=== PATIENT | female | born 1955 | race Caucasian/White ===

== ENCOUNTER 2021-08-11 16:39 | Emergency (ER) | payer OTHER ==
[2021-08-11] MEDS ORDERED: HYDROCODONE/APAP 7.5/325 MG TAB ONE (17:23)
[2021-08-11] MEDS ORDERED: MORPHINE 4 MG/ML SYR ONE ×2 (18:25→19:59)
[2021-08-11] MEDS ORDERED: ONDANSETRON 4 MG/2 ML VIAL ONE (18:25)
--- NOTE | 2021-08-11 18:36 | RAD REPORT ---
EXAM DESCRIPTION: RAD - Ankle Right 3 View - 08/11/2021 6:19 pm CLINICAL HISTORY: PAIN COMPARISON: No comparisons FINDINGS: No fracture, dislocation or periosteal reaction. No joint effusion seen. No joint space na rrowing. Anterior and lateral soft tissue swelling present. IMPRESSION: Negative right ankle for acute bone or joint finding.
--- NOTE | 2021-08-11 18:39 | RAD REPORT ---
EXAM DESCRIPTION: RAD - Ankle Left 3 View - 08/11/2021 6:19 pm CLINICAL HISTORY: PAIN COMPARISON: No comparisons FINDINGS: Oblique fracture is present through the distal fibula with no significant distraction or a ngulation deformity. There is significant anterior and lateral soft tissue swelling. Coronal oriented fracture line is seen through the posterior tibia extending to the articular surface. Fracture also appears to traverse the medial malleolus. No significant distraction or angulation of any of the frac ture lines. Talus and calcaneus are intact. No foreign body in the soft tissues. IMPRESSION: Distal fibula and posterior malleolus tibia fractures without distraction or angulation of any significance. Suspected medial malleolus fracture without distraction or angulation deformity.
--- NOTE | 2021-08-11 18:40 | RAD REPORT ---
EXAM DESCRIPTION: RAD - Tib Fib Left - 08/11/2021 6:19 pm CLINICAL HISTORY: Fall, leg pain COMPARISON: None. FINDINGS: Distal tibia and fibula fractures are detailed in the ankle report. Remainder the tibia an d fibula are intact. No acute finding in the knee joint. No foreign body or other soft tissue abnormality. IMPRESSION: Distal tibia and fibula fracture is separately reported. Remainder of the tib-fib exam is unremarkable.
--- NOTE | 2021-08-11 19:51 | EDPHYS ---
Physician Documentation [facility] Name: Tati Thomas Age: 65 yrs Sex: Female : 1955 Arrival Date: 08/11/2021 Time: 16:43 Bed 14 Private MD: ED Physician Fer Beal HPI: 08/11 17:25 This 65 yrs old Female presents to ER via Wheelchair with complaints of Fall Injury. cp 17:25 The patient presents with an injury, pain, that is acute. The complaints affect the cp left ankle, right ankle. Details of fall: The patient fell from a height, down approximately 3 stairs, from an upright position, while walking. 17:25 Onset: The symptoms/episode began/occurred just prior to arrival. Patient reports she cp lost her balance causing her to fall down 3 stairs injuring both ankles. Historical: - Allergies: 16:56 No Known Allergies; ld1 - Home Meds: 16:56 trazodone 50 mg Oral tab 1 tab once daily [Active]; Paxil 10 mg Oral tab 1 tab once ld1 daily [Active]; - PMHx: 16:56 Depressive disorder; insomnia; ld1 - PSHx: 16:56 None; ld1 - Immunization history:: Adult Immunizations up to date, Client reports having NOT received the Covid vaccine. - Social history:: Smoking status: Patient denies any tobacco usage or history of. Patient/guardian denies using alcohol. ROS: 17:30 Neck: Negative for pain with movement, pain at rest, stiffness. cp 17:30 Cardiovascular: Negative for chest pain. 17:30 Abdomen/GI: Negative for abdominal pain. 17:30 Back: Negative for pain at rest, pain with movement. 17:30 MS/extremity: Positive for injury or acute deformity, decreased range of motion, pain, tenderness, of the left ankle and right ankle. 17:30 Neuro: Negative for altered mental status, headache, loss of consciousness, syncope, weakness. Exam: 17:35 Constitutional: The patient appears in no acute distress, alert, awake, well developed, cp well nourished, uncomfortable. 17:35 Head/Face: Normocephalic, atraumatic. cp 17:35 Neck: C-spine: vertebral tenderness, is not appreciated, crepitus, is not appreciated, ROM/movement: is normal, is supple, without pain, no range of motions limitations. 17:35 Chest/axilla: Inspection: normal. 17:35 Cardiovascular: Rate: normal, Rhythm: regular. 17:35 Respiratory: the patient does not display signs of respiratory distress, Respirations: normal, no use of accessory muscles, no retractions, labored breathing, is not present, Breath sounds: are clear throughout, no decreased breath sounds. 17:35 Abdomen/GI: Exam negative for discomfort, distension, guarding, Inspection: abdomen appears normal. 17:35 Back: pain, is absent, ROM is normal, vertebral tenderness, is not appreciated. 17:35 Musculoskeletal/extremity: Extremities: grossly normal except: noted in the left ankle: decreased ROM, deformity, pain, swelling, tenderness, noted in the right ankle: pain, tenderness, Pulses: noted to be 2+ in the right dorsalis pedis artery and left dorsalis pedis artery, the left ankle Severe pain noted. Achilles tendons palpated and intact. 17:35 Neuro: Orientation: to person, place \T\ time. Mentation: is normal, Motor: moves all fours, strength is normal, Sensation: no obvious gross deficits. Vital Signs: 16:55 BP 164 / 69; Pulse 88; Resp 18; Temp 98.1(TE); Pulse Ox 97% on R/A; Weight 66.22 kg; ld1 Height 5 ft. 5 in. (165.10 cm); Pain 10/10; 18:11 BP 159 / 77; Pulse 82; Resp 18; Pulse Ox 98% on R/A; Pain 9/10; ld1 19:21 BP 152 / 79; Pulse 79; Resp 18; Pulse Ox 98% on R/A; ld1 16:55 Body Mass Index 24.30 (66.22 kg, 165.10 cm) ld1 Procedures: 20:10 Splinting: Splint applied to left ankle using Orthoglass splint, posterior long leg and cp shahid. applied by myself. tech. Examined by me, post splint application: neurovascular intact, Patient tolerated well. MDM: 17:01 Patient medically screened. 19:40 Physician consultation: Andrez Patton MD was called at 19:40, was contacted at 19:40, regarding consult, patient's condition, and will see patient in office, wants patient to contact clinic in morning to schedule appt. 19:50 Data reviewed: vital signs, nurses notes, radiologic studies, plain films. cp 19:50 Differential diagnosis: fracture, sprain, dislocation, open fracture. Test cp interpretation: by ED physician or midlevel provider: plain radiologic studies. Counseling: I had a detailed discussion with the patient and/or guardian regarding: the historical points, exam findings, and any diagnostic results supporting the discharge/admit diagnosis, radiology results, the need for outpatient follow up, for definitive care, a orthopedic surgeon, to return to the emergency department if symptoms worsen or persist or if there are any questions or concerns that arise at home. Response to treatment: the patient's symptoms have markedly improved after treatment. 08/11 17:18 Order name: XRAY Ankle LEFT 3 view; Complete Time: 18:43 cp 08/11 18:44 Interpretation: Report reviewed. cp 08/11 17:18 Order name: XRAY Ankle RIGHT 3 view; Complete Time: 18:43 cp 08/11 18:44 Interpretation: Report reviewed. cp 08/11 17:18 Order name: XRAY Tib Fib LEFT; Complete Time: 18:43 cp 08/11 18:29 Order name: Saline Lock; Complete Time: 18:29 mh5 08/11 18:35 Order name: Splint - Long Leg: Posterior w/ Stirrup: left ankle; Complete Time: 19:15 cp 08/11 18:35 Order name: Crutches; Complete Time: 19:15 cp 08/11 18:45 Order name: Ankle Splint: Aircast; Complete Time: 19:15 cp Administered Medications: 17:24 Drug: Hydrocodone-Acetaminophen (7.5 mg-325 mg) 1 tabs Route: PO; ld1 20:03 Drug: morphine 4 mg Route: IVP; Site: left antecubital; ld1 20:03 Follow up: Response: No adverse reaction ld1 Disposition: 20:15 Chart complete. cp Disposition Summary: 08/11/21 19:51 Discharge Ordered Location: Home cp Problem: new cp Symptoms: have improved cp Condition: Stable cp Diagnosis - Displaced trimalleolar fracture of left lower leg, initial encounter for closed cp fracture - Sprain of ankle - right cp Followup: cp - With: Andrez Patton MD - When: 1 - 2 days - Reason: left trimalleolar fracture Discharge Instructions: - Discharge Summary Sheet cp - Ankle Sprain cp - Displaced Trimalleolar Ankle Fracture Treated With ORIF cp Forms: - Medication Reconciliation Form cp - Thank You Letter cp - Antibiotic Education cp - Prescription Opioid Use cp Prescriptions: - Ibuprofen 800 mg Oral Tablet - take 1 tablet by ORAL route every 8 hours As needed take with food; 30 tablet; cp Refills: 0, Product Selection Permitted - Tylenol-Codeine #3 300 mg-30 mg Oral - take 2 tablet by ORAL route every 6-8 hours; 20 tablet; Refills: 0, Product cp Selection Permitted Addendum: 08/15/2021 06:58 Co-signature as Attending Physician, Fer Beal MD I agree with the assessment and r n plan of care. Attestation: The patient's history, exam findings, diagnostics, and a summary of any interventions or procedures was reviewed in detail with Cezar GRAHAM. Signatures: Dispatcher [employer] EDAL Fer Beal MD MD rn Page, Corey, PA PA cp Martinez, Maria 5 Bettie Chin RN RN ld1 Corrections: (The following items were deleted from the chart) 08/11 18:01 17:32 Ankle Left 3 View ordered. [facility] 18:01 17:32 Ankle Right 3 View ordered. [facility] 18:01 17:32 Tib Fib Left ordered. [facility] 08/12 17:34 08/11 17:40 MS/extremity: Positive for injury or acute deformity, decreased range of cp motion, pain, tenderness, of the left ankle and right ankle, cp 08/12 17:35 17:30 MS/extremity: Positive for injury or acute deformity, decreased range of motion, cp pain, tenderness, of the left ankle and right ankle, cp 17:35 17:30 Neck: Negative for pain with movement, pain at rest, stiffness, cp cp 17:35 17:30 Back: Negative for pain at rest, pain with movement, cp cp 17:35 17:30 Abdomen/GI: Negative for abdominal pain, cp cp 17:35 17:30 Cardiovascular: Negative for chest pain, cp cp 17:35 17:30 Neuro: Negative for altered mental status, headache, loss of consciousness, cp syncope, weakness, cp 17:35 17:30 All other systems are negative, cp cp
--- NOTE | 2021-08-11 19:51 | ER ---
Nurse's Notes [facility] Name: Tati Thomas Age: 65 yrs Sex: Female : 1955 Arrival Date: 08/11/2021 Time: 16:43 Bed 14 Private MD: Diagnosis: Displaced trimalleolar fracture of left lower leg, initial encounter for closed fracture;Sprain of ankle-right Presentation: 08/11 16:55 Chief complaint: Patient states: I tripped down the 3 stairs in my bedroom 1 hour ago ld1 and my left and right ankles are swollen and hurt, I can not walk on them. Coronavirus screen: At this time, the client does not indicate any symptoms associated with coronavirus-19. Ebola Screen: No symptoms or risks identified at this time. Initial Sepsis Screen: Does the patient meet any 2 criteria? No. Patient's initial sepsis screen is negative. Does the patient have a suspected source of infection? No. Patient's initial sepsis screen is negative. Risk Assessment: Do you want to hurt yourself or someone else? Patient reports no desire to harm self or others. Onset of symptoms was August 11, 2021. 16:55 Method Of Arrival: Wheelchair ld1 16:55 Acuity: GEORGINA 3 ld1 Triage Assessment: 16:56 General: Appears in no apparent distress. uncomfortable, Behavior is appropriate for ld1 age, anxious, crying. Pain: Complains of pain in anterior aspect of right ankle, dorsum of right foot, anterior aspect of left ankle and dorsum of left foot Pain does not radiate. Pain currently is 10 out of 10 on a pain scale. Quality of pain is described as sharp, shooting, throbbing, Pain began suddenly, Is continuous. EENT: No signs and/or symptoms were reported regarding the EENT system. Neuro: Level of Consciousness is awake, alert, obeys commands, Oriented to person, place, time, situation, Appropriate for age. Cardiovascular: Capillary refill < 3 seconds Patient's skin is warm and dry. Respiratory: Airway is patent Respiratory effort is even, unlabored, Respiratory pattern is regular, symmetrical. GI: Abdomen is flat, non-distended. : No signs and/or symptoms were reported regarding the genitourinary system. Derm: No signs and/or symptoms reported regarding the dermatologic system. Musculoskeletal: No signs and/or symptoms reported regarding the musculoskeletal system. Historical: - Allergies: 16:56 No Known Allergies; ld1 - Home Meds: 16:56 trazodone 50 mg Oral tab 1 tab once daily [Active]; Paxil 10 mg Oral tab 1 tab once ld1 daily [Active]; - PMHx: 16:56 Depressive disorder; insomnia; ld1 - PSHx: 16:56 None; ld1 - Immunization history:: Adult Immunizations up to date, Client reports having NOT received the Covid vaccine. - Social history:: Smoking status: Patient denies any tobacco usage or history of. Patient/guardian denies using alcohol. Screenin:00 Abuse screen: Denies threats or abuse. Denies injuries from another. Nutritional ld1 screening: No deficits noted. Tuberculosis screening: No symptoms or risk factors identified. Fall Risk None identified. Assessment: 17:00 Reassessment: See triage assessment. ld1 18:11 Reassessment: Patient appears in no apparent distress at this time. Patient and/or ld1 family updated on plan of care and expected duration. Pain level reassessed. Pt c/o pain in AMAN ankle/feet. 19:21 Reassessment: Patient appears in no apparent distress at this time. Patient and/or ld1 family updated on plan of care and expected duration. Pain level reassessed. Vital Signs: 16:55 BP 164 / 69; Pulse 88; Resp 18; Temp 98.1(TE); Pulse Ox 97% on R/A; Weight 66.22 kg; ld1 Height 5 ft. 5 in. (165.10 cm); Pain 10/10; 18:11 BP 159 / 77; Pulse 82; Resp 18; Pulse Ox 98% on R/A; Pain 9/10; ld1 19:21 BP 152 / 79; Pulse 79; Resp 18; Pulse Ox 98% on R/A; ld1 16:55 Body Mass Index 24.30 (66.22 kg, 165.10 cm) ld1 ED Course: 16:43 Patient arrived in ED. ds1 16:46 Cezar Johns PA is PHCP. cp 16:47 Melanie Harmon MD is Attending Physician. cp 16:54 Bettie Chin RN is Primary Nurse. ld1 16:56 Triage completed. ld1 16:56 Arm band placed on right wrist. ld1 17:00 Patient has correct armband on for positive identification. Placed in gown. Bed in low ld1 position. Call light in reach. Side rails up X2. Pulse ox on. NIBP on. Door closed. Noise minimized. Warm blanket given. 17:00 No provider procedures requiring assistance completed. ld1 18:19 XRAY Ankle LEFT 3 view In Process Unspecified. EDMS 18:19 XRAY Ankle RIGHT 3 view In Process Unspecified. EDMS 18:19 XRAY Tib Fib LEFT In Process Unspecified. EDMS 18:29 Inserted saline lock: 20 gauge in left antecubital area, using aseptic technique. 5 19:04 Fer Beal MD is Attending Physician. cp 19:15 Crutch training done. Orthoglass splint: Posterior long leg splint applied on left leg. 5 Air stirrup applied to right ankle. 19:47 Andrez Patton MD is Referral Physician. cp 20:04 IV discontinued, intact, bleeding controlled, No redness/swelling at site. ld1 Administered Medications: 17:24 Drug: Hydrocodone-Acetaminophen (7.5 mg-325 mg) 1 tabs Route: PO; ld1 20:03 Drug: morphine 4 mg Route: IVP; Site: left antecubital; ld1 20:03 Follow up: Response: No adverse reaction ld1 Outcome: 19:51 Discharge ordered by MD. cp 20:04 Discharged to home via wheelchair, with crutches, with family. ld1 20:04 Condition: stable 20:04 Discharge instructions given to patient, family, Instructed on discharge instructions, follow up and referral plans. medication usage, Demonstrated understanding of instructions, follow-up care, medications, Prescriptions given X 2. 20:04 Patient left the ED. ld1 Signatures: Dispatcher [employer] [facility] Feldman[employer]era 1 Cezar Johns PA PA Dhara Gallardo [facility] Bettie Chin RN RN ld1
[2021-08-11 20:19] VITALS: TEMP 98.1
[2021-08-11 20:22] VITALS: O2SAT 98
[2021-08-11 20:24] VITALS: BP 152/79
== END 2021-08-11 20:04 | disposition home or self-care (01) ==
LOC: ER 16:39
PROC: 2W3MX1Z Immobilization of Left Lower Extremity using Splint (ICD-10-PCS; principal; 2021-08-11)
DX: S82.852A Displaced trimalleolar fracture of left lower leg, initial encounter for closed fracture (principal); S93.401A Sprain of unspecified ligament of right ankle, initial encounter; W10.9XXA Fall (on) (from) unspecified stairs and steps, initial encounter
CPT/HCPCS: 73590; 73610 ×2; 96374; 99284; 29505; J2405